=== PATIENT | male | born 1955 | race African-American/Black ===

== ENCOUNTER 2017-06-15 12:49 | Emergency (ER) | payer SELFPAY ==
[2017-06-15 12:57] VITALS: BP 112/85; BMI 24.3
--- NOTE | 2017-06-15 13:55 | DR.GENAD ---
HPI - PCP Primary Care Physician: NFD - HPI Comment HPI Comment: INCREASING ABDOMINAL PAIN SINCE YESTERDAY WITH NAUSEA AND VOMITING. HAD BM YESTERDAY. NO FEVER. VOMITED TIMES ONE TODAY. - Complaint/Symptoms Chief Complaint Doctors Comments: ABDOMINAL PAIN TIMES ONE DAY. Chief Complaint:: PATIENT STATED THAT HE HAS BEEN HAVING STOMACH PAINS SINCE 7: 28 YESTERDAY. - Nurses notes reviewed Nurses Notes Review: Yes - Source History Provided: Patient - Mode of Arrival Mode of Arrival: Ambulatory - Timing Onset of Chief Complaint: 06/14/17 Came on: Suddenly - Duration Duration: Constant Duration: Days - Severity Severity: Moderate PMH - PMH Past Medical History: Yes Past Medical History: Arthritis Past Medical History Comment: BACK PAIN Past Surgical History: No - Family History History of Family Medical Conditions: No - Social History Does patient currently use any type of tobacco product: No Have you used tobacco products in the last 12 months: No Type of Tobacco Use: None Does any household member use tobacco: No Alcohol Use: Rarely Do you use any recreational Drugs:: No Lives With: Family Lives Where: Home - infectious screening In the last 2 months have you had wt loss of >10#?: NO Have you had fever, night sweats or hemotysis?: No Have you traveled outside the country in the last 6 months?: No Isolation: Standard ROS - Review of Systems Constitutional: No Symptoms Reported Eyes: No Symptoms Reported ENTM: No Symptoms Reported Respiratoy: No Symptoms Reported Cardiovascular: No Symptoms Reported Gastrointestinal/Abdominal: Abdominal Pain, Constipation, Nausea, Vomiting. negative: Diarrhea Genitourinary: No Symptoms Reported. negative: Dysuria, Frequency, Hematuria Neurological: No Symptoms Reported Musculoskeletal: No Symptoms Reported Integumentary: No Symptoms Reported Hematologic/Lymphatic: No Symptoms Reported Endocrine: No Symptoms Reported All Other Systems: Reviewed and Negative PE - Vital Signs Vitals: Temperature 98.1 F Pulse Rate 62 Respiratory Rate 20 Blood Pressure 112/85 O2 Sat by Pulse Oximetry 97 - General Limitations: No Limitations General Appearance: Alert - Head Head Exam: Normal Inspection - Eyes Eye exam: Normal Appearance - ENT ENT Exam: Normal External Ear Exam External Ear Exam: Normal External Inspection TM/Canal Exam: Bilateral Normal Nose Exam: Normal Nose Exam Mouth Exam: Normal Inspection Throat Exam: Normal Inspection - Neck Neck Exam: Trachea Midline - Chest Chest Inspection: Symmetric Chest Wall Rise - Respiratory Respiratory Exam: Normal Lung Sounds Bilat Respiratory Exam: Bilateral Clear to Auscultation - Cardiovascular Cardiovascular Exam: Regular Rate, Normal Rhythm, Normal Heart Sounds - Abdominal Exam Abdominal Exam: Normal Bowel Sounds, Soft, Tenderness Abdominal Tenderness: RUQ, LUQ, Epigastrium, Moderate - Extremities Extremities Exam: Normal Inspection - Back Back Exam: Normal Inspection - Neurologic Neurological Exam: Oriented X3, CN II-XII Intact, Normal Gait, Reflexes Normal. negative: Motor Sensory Deficit - Psychiatric Psychiatric Exam: Normal Affect, Normal Mood - Skin Skin Exam: Normal Color MDM - Differential Diagnosis Differential Diagnosis: ABDOMINAL PAIN, BOWEL OBSTRUCTION, DIVERTICULITIS, PUD, CHOLECYSTITIS, UTIN Course - Treatment Treatment: SEE ORDERS. - Education/Counseling Education/Counseling: Patient, Education Educated On: Diagnosis, Needs for Follow Up ROR - Labs Reviewed Laboratory Results Reviewed?: Yes Result Diagrams: 06/15/17 14:04 06/15/17 14:04 Laboratory: WBC 13.0 X10^3/uL (3.6-10.0) H 06/15/17 14:04 RBC 5.65 X10^6/uL (4.7-6.0) 06/15/17 14:04 Hgb 15.9 g/dL (13.5-18.0) 06/15/17 14:04 Hct 48.4 % (42.0-54.0) 06/15/17 14:04 MCV 85.6 fL (80.0-100.0) 06/15/17 14:04 MCH 28.1 pg (27.0-34.0) 06/15/17 14:04 MCHC 32.9 g/dL (33.0-35.0) L 06/15/17 14:04 RDW 13.5 % (11.6-16.5) 06/15/17 14:04 Plt Count 171 X10^3/uL (150.0-450.0) 06/15/17 14:04 MPV 8.7 fL (7.4-11.0) 06/15/17 14:04 Neut % 80.2 % (42.0-75.0) H 06/15/17 14:04 Lymph % 13.2 % (21.0-51.0) L 06/15/17 14:04 [place] % 5.9 % (0.0-13.0) 06/15/17 14:04 Eos % 0.2 % (0.9-2.9) L 06/15/17 14:04 Baso % 0.5 % (0.2-1.0) 06/15/17 14:04 Neut # 10.4 x10^3/uL (2.2-4.8) H 06/15/17 14:04 Lymph # 1.7 X10^3/uL (1.3-2.9) 06/15/17 14:04 [place] # 0.8 x10^3/uL (0.3-0.8) 06/15/17 14:04 Eos # 0.0 x10^3/uL (0.0-0.2) 06/15/17 14:04 Baso # 0.1 X10^3/uL (0.0-0.1) 06/15/17 14:04 Absolute Nucleated RBC 0.0 /100WBC 06/15/17 14:04 Sodium 139 mmol/L (136-145) 06/15/17 14:04 Corrected Sodium 139 mmol/L (136-145) 06/15/17 14:04 Potassium 3.6 mmol/L (3.5-5.1) 06/15/17 14:04 Chloride 103 mmol/L (98-107) 06/15/17 14:04 Carbon Dioxide 33.1 mmol/L (21-32) H 06/15/17 14:04 BUN 18 mg/dL (7-18) 06/15/17 14:04 Creatinine 1.03 mg/dL (0.70-1.30) 06/15/17 14:04 Est GFR (MDRD) Af Amer > 60 (>60) 06/15/17 14:04 Est GFR (MDRD) Non-Af > 60 (>60) 06/15/17 14:04 Glucose 119 mg/dL (65-99) H 06/15/17 14:04 Calcium 9.1 mg/dL (8.5-10.1) 06/15/17 14:04 Corrected Calcium TNP 06/15/17 14:04 Total Bilirubin 1.00 mg/dL (0.2-1.0) 06/15/17 14:04 AST 19 Units/L (15-37) 06/15/17 14:04 ALT 28 Units/L (12-78) 06/15/17 14:04 Alkaline Phosphatase 59 Units/L (46-116) 06/15/17 14:04 Total Protein 8.3 g/dL (6.4-8.2) H 06/15/17 14:04 Albumin 4.4 g/dL (3.4-5.0) 06/15/17 14:04 Globulin 3.9 g/dL (2.5-4.5) 06/15/17 14:04 Albumin/Globulin Ratio 1.1 Ratio (1.1-2.1) 06/15/17 14:04 Amylase 80 Units/L (25-115) 06/15/17 14:04 Lipase 83 Units/L (73-393) 06/15/17 14:04 - XRAY XRAY Interpreted by: Radiologist XRAY Findings: REPORT DISCUSS WITH PATIENT. - Diagnosis Discharge Problem: Rectal mass, Abdominal pain - Discharge Plan Disposition: HOME, SELF-CARE Condition: Stable Prescriptions: Ondansetron HCl [Zofran Tab 4 mg] 4 mg PO Q8H PRN #12 tab PRN Reason: Nausea/Vomiting Ranitidine HCl [ZANTAC TAB 150 MG *] 150 mg PO BID #60 tab Tramadol HCl 50 mg PO TID PRN #12 PRN Reason: - Follow ups/Referrals Follow ups/Referrals: NFD,None [Primary Care Provider] - 06/17/17 - Instructions Instructions: Abdominal Pain, Adult, Lldz-ej-Ahew Additional Instructions: RETURN TO ED IF WORSE. SEE YOUR DOCTOR THIS SATURDAY. YOU HAVE A MASS NEAR RECTUM ON YOUR CAT SCAN THAT YOU NEED TO SEE YOUR DOCTOR FOR SO YOU CAN DISCUSS WHAT NEED TO BE DONE GOING FORWARD.
[2017-06-15] MEDS ORDERED: ZOFRAN INJ 4 MG VIAL IVP ONE (13:56)
[2017-06-15] MEDS ORDERED: PEPCID 20 MG IV PREMIX* 20 MG/50 ML BAG IV ONE ×2 (13:56→14:06)
[2017-06-15] MEDS ORDERED: TORADOL 30 MG VIAL IVP ONE (13:57)
[2017-06-15] MEDS ORDERED: ZOFRAN INJ 4 MG VIAL ONE (14:07)
[2017-06-15] MEDS ORDERED: TORADOL 30 MG VIAL ONE (14:07)
[2017-06-15 14:12] LABS: BASOPHILS # (AUTO) 0.1 X10^3/uL (0.0-0.1); BASOPHILS % (AUTO) 0.5 % (0.2-1.0); EOSINOPHILS % (AUTO) 0.2 % (0.9-2.9); HEMATOCRIT 48.4 % (42.0-54.0); HEMOGLOBIN 15.9 g/dL (13.5-18.0); LYMPHOCYTES # (AUTO) 1.7 X10^3/uL (1.3-2.9); LYMPHOCYTES % (AUTO) 13.2 % (21.0-51.0); MEAN CORPUSCULAR HEMOGLOBIN 28.1 pg (27.0-34.0); MEAN CORPUSCULAR HGB CONC 32.9 g/dL (33.0-35.0); MEAN CORPUSCULAR VOLUME 85.6 fL (80.0-100.0); MEAN PLATELET VOLUME 8.7 fL (7.4-11.0); MONOCYTES # (AUTO) 0.8 x10^3/uL (0.3-0.8); MONOCYTES % (AUTO) 5.9 % (0.0-13.0); NEUTROPHILS # (AUTO) 10.4 x10^3/uL (2.2-4.8); NEUTROPHILS % (AUTO) 80.2 % (42.0-75.0); PLATELET COUNT 171 X10^3/uL (150.0-450.0); RED BLOOD COUNT 5.65 X10^6/uL (4.7-6.0); RED CELL DISTRIBUTION WIDTH 13.5 % (11.6-16.5)
[2017-06-15 14:31] LABS: ALANINE AMINOTRANSFERASE 28 Units/L (12-78); ALBUMIN 4.4 g/dL (3.4-5.0); ALKALINE PHOSPHATASE 59 Units/L (46-116); AMYLASE 80 Units/L (25-115); ASPARTATE AMINO TRANSFERASE 19 Units/L (15-37); BLOOD UREA NITROGEN 18 mg/dL (7-18); CALCIUM 9.1 mg/dL (8.5-10.1); CARBON DIOXIDE 33.1 mmol/L (21-32); CHLORIDE 103 mmol/L (98-107); COR NA(FOR HYPERGLY) 139 mmol/L (136-145); CREATININE 1.03 mg/dL (0.70-1.30); GLUCOSE 119 mg/dL (65-99); LIPASE 83 Units/L (73-393); SODIUM 139 mmol/L (136-145); TOTAL PROTEIN 8.3 g/dL (6.4-8.2); eGFR BLACK RACES > 60 (>60); eGFR NON BLACK RACES > 60 (>60)
--- NOTE | 2017-06-15 15:56 | CT ---
CT OF THE ABDOMEN AND PELVIS WITHOUT CONTRAST HISTORY: Abdominal pain. Comparison: None Technique: Multiple axial images of the abdomen and pelvis were obtained from the lung bases to the pubic symph ysis without the administration of IV contrast. Dose reduction techniques including Automated Expos ure Control (AEC) and adjustment of mA and kV were utlized. Findings: The heart is normal in size. There is no pericardial effusion. Lung bases are clear without focal co nsolidation, pleural effusion or pneumothorax. The sensitivity for focal lesion detection within the solid abdominal viscera is diminished without the use of IV contrast. Liver and spleen are normal in size, and contour. No focal lesions. No ductal dilitation. Gallbladde r is present. No calcified gallstones or gallbladder wall thickening. The pancreas is unremarkable. Adrenal glands are normal. Kidneys are normal in contour without hydronephrosis or nephrolithiasis. No bowel obstruction or inflammation. Normal appendix. There is a soft tissue mass in the adjacent t o the rectum measuring 3.9 x 4.7 x 2.2 cm best seen on series 3, image 64 and series 7, image 30 . M ultiple perirectal lymph nodes are also seen. For example 2 lymph nodes in the presacral region shelli uring 1.3 cm apiece on series 3, image 68. Right iliac node measuring 1.6 cm on series 3, image 64. Should be noted this soft tissue mass may have some contiguity with the rectum for example on series 3, image 69 and series 6 image 43. No free fluid or fluid collections. The bladder is normal in appearance. Prostate measures 5.4 cm. No free fluid. No aggressive osseous lesions. IMPRESSION: 1. Perirectal soft tissue mass as above. Pelvic lymphadenopathy. Findings are concerning for malign willie although this is a somewhat atypical appearance for rectal carcinoma. Theoretically this could represent developing infection although again, would favor malignancy. Reported By:
[2017-06-15] MEDS ORDERED: ULTRAM ONE (16:36)
[2017-06-15] MEDS ORDERED: ULTRAM PO ONE (16:38)
== END 2017-06-15 16:46 | disposition home or self-care (01) ==
LOC: ER 12:54
DX: K62.89 Other specified diseases of anus and rectum (principal); R10.11 Right upper quadrant pain
CPT/HCPCS: 36415; 74176; 80053; 82150; 83690; 85025; 96365; 96374; 96375; 99283; A4222; S0028; J1885; J2405

== ENCOUNTER 2017-07-03 09:12 | Day surgery (SDC) | payer SELFPAY ==
[2017-07-03] MEDS ORDERED: D5 LR 1000 ML 1,000 ML IV ONE (09:34)
[2017-07-03] MEDS ORDERED: DIPRIVAN VIAL 20 ML ONE (11:37)
[2017-07-03 13:20] VITALS: BP 124/82
== END 2017-07-03 12:20 | disposition home or self-care (01) ==
LOC: SURG1 09:12
PROVIDERS: ATTEND Internal Medicine
PROC: 0DBN8ZX Excision of Sigmoid Colon, Via Natural or Artificial Opening Endoscopic, Diagnostic (ICD-10-PCS; principal; 2017-07-03 10:00)
PROC: 0DBM8ZX Excision of Descending Colon, Via Natural or Artificial Opening Endoscopic, Diagnostic (ICD-10-PCS; principal; 2017-07-03 10:00)
PROC: 0DJD8ZZ Inspection of Lower Intestinal Tract, Via Natural or Artificial Opening Endoscopic (ICD-10-PCS; principal; 2017-07-03 10:00)
DX: Z12.11 Encounter for screening for malignant neoplasm of colon (principal); R10.84 Generalized abdominal pain; K57.30 Diverticulosis of large intestine without perforation or abscess without bleeding; R19.09 Other intra-abdominal and pelvic swelling, mass and lump; K64.0 First degree hemorrhoids; L53.8 Other specified erythematous conditions
CPT/HCPCS: A4217; J3490; J7120

== ENCOUNTER → 2017-12-20 | Outpatient (CLI) | payer SELFPAY ==
[2017-12-20 12:24] LABS: BASOPHILS # (AUTO) 0.1 X10^3/uL (0.0-0.1); BASOPHILS % (AUTO) 0.6 % (0.2-1.0); EOSINOPHILS # (AUTO) 0.1 x10^3/uL (0.0-0.2); EOSINOPHILS % (AUTO) 0.8 % (0.9-2.9); HEMATOCRIT 44.2 % (42.0-54.0); HEMOGLOBIN 14.7 g/dL (13.5-18.0); LYMPHOCYTES # (AUTO) 2.6 X10^3/uL (1.3-2.9); LYMPHOCYTES % (AUTO) 22.4 % (21.0-51.0); MEAN CORPUSCULAR HEMOGLOBIN 27.4 pg (27.0-34.0); MEAN CORPUSCULAR HGB CONC 33.1 g/dL (33.0-35.0); MEAN CORPUSCULAR VOLUME 82.6 fL (80.0-100.0); MEAN PLATELET VOLUME 8.3 fL (7.4-11.0); MONOCYTES % (AUTO) 8.8 % (0.0-13.0); NEUTROPHILS # (AUTO) 7.9 x10^3/uL (2.2-4.8); NEUTROPHILS % (AUTO) 67.4 % (42.0-75.0); PLATELET COUNT 235 X10^3/uL (150.0-450.0); RED BLOOD COUNT 5.35 X10^6/uL (4.7-6.0); RED CELL DISTRIBUTION WIDTH 13.6 % (11.6-16.5); WHITE BLOOD COUNT 11.7 X10^3/uL (3.6-10.0)
[2017-12-20 12:45] LABS: ALANINE AMINOTRANSFERASE 24 Units/L (12-78); ALBUMIN 3.9 g/dL (3.4-5.0); ALKALINE PHOSPHATASE 81 Units/L (46-116); ASPARTATE AMINO TRANSFERASE 25 Units/L (15-37); BLOOD UREA NITROGEN 13 mg/dL (7-18); CALCIUM 9.4 mg/dL (8.5-10.1); CHLORIDE 103 mmol/L (98-107); CREATININE 0.87 mg/dL (0.70-1.30); FREE T4 (FREE THYROXINE) 1.08 ng/dL (0.76-1.46); SODIUM 138 mmol/L (136-145); T4 (THYROXINE) 8.5 ug/dL (4.7-13.3); TOTAL PROTEIN 7.8 g/dL (6.4-8.2); TSH (3RD GENERATION) 0.903 uIU/mL (0.358-3.74); eGFR BLACK RACES > 60 (>60); eGFR NON BLACK RACES > 60 (>60)
== END ==
LOC: LAB 12:00
PROVIDERS: ATTEND Nurse Practitioner Family
DX: I10 Essential (primary) hypertension (principal); Z79.899 Other long term (current) drug therapy; Z12.5 Encounter for screening for malignant neoplasm of prostate
CPT/HCPCS: 36415; 80053; 84153; 84154; 84436; 84439; 84443; 85025

== ENCOUNTER 2018-01-22 13:54 | Emergency (ER) | payer SELFPAY ==
[2018-01-22 13:58] VITALS: BP 114/72; BMI 23.2
--- NOTE | 2018-01-22 14:31 | DR.GENAD ---
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 He is scheduled for bone marrow tomorrow. Chief Complaint:: PT. C/O RIGHT HIP PAIN THAT RADIATES TO RIGHT THIGH WHICH BEGAN LAST NIGHT. PT. DENIES INJURY. PT. HAS ALSO BEEN RUNNING A FEVER X 3-4 NIGHTS. SPOUSE STATES PT. WAS RECENTLY DIAGNOSED WITH CANCER (PER DR. HERRERA), UNCERTAIN OF WHAT KIND. PT. IS SCHEDULED FOR BONE MARROW BIOPSY TOMORROW. SHE STATES DR. HERRERA INFORMED THEM THAT IF PT. STARTED RUNNING A FEVER TO COME TO THE ER. - Source History Provided: Patient, Significant Other - Mode of Arrival Mode of Arrival: Ambulatory - Timing Onset of Chief Complaint: 01/18/18 PMH - PMH Past Medical History: Yes Past Medical History: Arthritis Past Surgical History: Yes Surgical History: Other Past Surgical History Comment: HERNIA REPAIR - Family History History of Family Medical Conditions: Yes Family Medical History: Hypertension - Social History Does patient currently use any type of tobacco product: Yes Have you used tobacco products in the last 12 months: Yes Type of Tobacco Use: Cigarettes Does any household member use tobacco: No Alcohol Use: None Do you use any recreational Drugs:: No Lives With: Significant Other Lives Where: Home - infectious screening In the last 2 months have you had wt loss of >10#?: NO Have you had fever, night sweats or hemotysis?: No Have you traveled outside the country in the last 6 months?: No Isolation: Standard ROS - Review of Systems Constitutional: negative: Chills, Diaphoresis Eyes: No Symptoms Reported ENTM: No Symptoms Reported Respiratoy: No Symptoms Reported Cardiovascular: No Symptoms Reported Gastrointestinal/Abdominal: No Symptoms Reported Genitourinary: No Symptoms Reported Neurological: No Symptoms Reported Musculoskeletal: No Symptoms Reported Integumentary: No Symptoms Reported Hematologic/Lymphatic: No Symptoms Reported Endocrine: No Symptoms Reported Psychiatric: No Symptoms Reported All Other Systems: Reviewed and Negative PE - Vital Signs Vitals: Temperature 99.6 F Pulse Rate 88 Respiratory Rate 18 Blood Pressure 114/72 O2 Sat by Pulse Oximetry 98 - General Limitations: No Limitations General Appearance: Alert, In No Apparent Distress - Head Head Exam: Normal Inspection, Atraumatic - Eyes Eye exam: Normal Appearance, PERRL, EOMI - ENT ENT Exam: Normal Exam External Ear Exam: Normal External Inspection TM/Canal Exam: Bilateral Normal Nose Exam: Normal Nose Exam Mouth Exam: Normal Inspection Throat Exam: Normal Inspection - Neck Neck Exam: Normal Inspection - Chest Chest Inspection: Normal Inspection - Respiratory Respiratory Exam: Normal Lung Sounds Bilat Respiratory Exam: Bilateral Clear to Auscultation - Cardiovascular Cardiovascular Exam: Regular Rate - Abdominal Exam Abdominal Exam: Normal Inspection Abdominal Tenderness: negative: RUQ, RLQ, LUQ, LLQ, Epigastrium, Suprapubic, Diffuse, Mild, Moderate, Severe, Other - Extremities Extremities Exam: Normal Inspection, Full ROM - Back Back Exam: Normal Inspection, Full ROM - Neurologic Neurological Exam: Alert, Oriented X3, CN II-XII Intact - Psychiatric Psychiatric Exam: Normal Affect - Skin Skin Exam: Warm, Dry, Intact Course - Education/Counseling Educated On: Treatment, Diagnosis, Needs for Follow Up ROR - Labs Reviewed Result Diagrams: 01/22/18 14:58 Laboratory: WBC 11.2 X10^3/uL (3.6-10.0) H 01/22/18 14:58 RBC 4.95 X10^6/uL (4.7-6.0) 01/22/18 14:58 Hgb 13.4 g/dL (13.5-18.0) L 01/22/18 14:58 Hct 40.3 % (42.0-54.0) L 01/22/18 14:58 MCV 81.4 fL (80.0-100.0) 01/22/18 14:58 MCH 27.0 pg (27.0-34.0) 01/22/18 14:58 MCHC 33.1 g/dL (33.0-35.0) 01/22/18 14:58 RDW 13.7 % (11.6-16.5) 01/22/18 14:58 Plt Count 209 X10^3/uL (150.0-450.0) 01/22/18 14:58 MPV 8.2 fL (7.4-11.0) 01/22/18 14:58 Neut % 73.5 % (42.0-75.0) 01/22/18 14:58 Lymph % 15.1 % (21.0-51.0) L 01/22/18 14:58 [place]s % 10.6 % (0.0-13.0) 01/22/18 14:58 Eos % 0.2 % (0.9-2.9) L 01/22/18 14:58 Baso % 0.6 % (0.2-1.0) 01/22/18 14:58 Neut # 8.3 x10^3/uL (2.2-4.8) H 01/22/18 14:58 Lymph # 1.7 X10^3/uL (1.3-2.9) 01/22/18 14:58 [place]s # 1.2 x10^3/uL (0.3-0.8) H 01/22/18 14:58 Eos # 0.0 x10^3/uL (0.0-0.2) 01/22/18 14:58 Baso # 0.1 X10^3/uL (0.0-0.1) 01/22/18 14:58 Absolute Nucleated RBC 0.0 /100WBC 01/22/18 14:58 C-Reactive Protein 62.50 mg/L (0-3.0) H 01/22/18 14:58 - Diagnosis Discharge Problem: Carcinoma of perirenal tissue - Discharge Plan Condition: Stable - Follow ups/Referrals Follow ups/Referrals: TAMMIE HERRERA [Primary Care Provider] - 3 days - Instructions
[2018-01-22] MEDS ORDERED: DILAUDID INJ IM PRN (14:50)
[2018-01-22] MEDS ORDERED: DILAUDID INJ ONE (14:55)
[2018-01-22 15:06] LABS: BASOPHILS # (AUTO) 0.1 X10^3/uL (0.0-0.1); BASOPHILS % (AUTO) 0.6 % (0.2-1.0); EOSINOPHILS % (AUTO) 0.2 % (0.9-2.9); HEMATOCRIT 40.3 % (42.0-54.0); HEMOGLOBIN 13.4 g/dL (13.5-18.0); LYMPHOCYTES # (AUTO) 1.7 X10^3/uL (1.3-2.9); LYMPHOCYTES % (AUTO) 15.1 % (21.0-51.0); MEAN CORPUSCULAR HGB CONC 33.1 g/dL (33.0-35.0); MEAN CORPUSCULAR VOLUME 81.4 fL (80.0-100.0); MEAN PLATELET VOLUME 8.2 fL (7.4-11.0); MONOCYTES # (AUTO) 1.2 x10^3/uL (0.3-0.8); MONOCYTES % (AUTO) 10.6 % (0.0-13.0); NEUTROPHILS # (AUTO) 8.3 x10^3/uL (2.2-4.8); NEUTROPHILS % (AUTO) 73.5 % (42.0-75.0); PLATELET COUNT 209 X10^3/uL (150.0-450.0); RED BLOOD COUNT 4.95 X10^6/uL (4.7-6.0); RED CELL DISTRIBUTION WIDTH 13.7 % (11.6-16.5); WHITE BLOOD COUNT 11.2 X10^3/uL (3.6-10.0)
[2018-01-22] MEDS ORDERED: ROCEPHIN VIAL 1 GM IM ONE (15:32)
[2018-01-22] MEDS ORDERED: ROCEPHIN VIAL 1 GM ONE (15:37)
== END 2018-01-22 16:00 | disposition home or self-care (01) ==
LOC: ER 14:04
DX: D20.0 Benign neoplasm of soft tissue of retroperitoneum (principal)
CPT/HCPCS: 36415; 85025; 86140; 90471; 96372; 99282; J0696; J1170

== ENCOUNTER 2018-09-09 14:16 | Observation (INO) ==
[2018-09-09 14:19] VITALS: BMI 25.8
--- NOTE | 2018-09-09 14:59 | DR.HEADACH ---
HPI Time Seen Time Seen by Provider: 09/09/18 14:40 Primary Care Physician Primary Care Physician: ALDO Complaint/Symptoms Chief Complaint Doctors Comments: C/O Severe COLIN after lying down Chief Complaint:: PT C/O SEVERE HEADACHE THAT STARTED ALL OF A SUDDEN WHEN HE LAID DOWN. PT STATES HE WAS TRANSFERRED TO [facility] THIS PAST SATURDAY HAVING A STROKE AND HE JUST RETURNED YESTERDAY. Pertinent History: Headache Source History Provided: Patient Mode of Arrival Mode of Arrival: Ambulatory Timing Onset of Chief Complaint: 09/09/18 PMH PMH Past Medical History: Yes Past Medical History: Arthritis and Hypertension Past Surgical History: No Family History History of Family Medical Conditions: Yes Family Medical History: Hypertension Social History Does any household member use tobacco: No Alcohol Use: None Do you use any recreational Drugs:: No Lives With: Family Lives Where: Home infectious screening In the last 2 months have you had wt loss of >10#?: NO Have you had fever, night sweats or hemotysis?: No Have you traveled outside the country in the last 6 months?: No Isolation: Standard ROS Review of Systems Constitutional: See HPI Eyes: No Symptoms Reported ENTM: No Symptoms Reported Respiratoy: No Symptoms Reported Cardiovascular: No Symptoms Reported Gastrointestinal/Abdominal: No Symptoms Reported Genitourinary: No Symptoms Reported Neurological: See HPI and Headache Musculoskeletal: No Symptoms Reported Integumentary: No Symptoms Reported Hematologic/Lymphatic: No Symptoms Reported Endocrine: No Symptoms Reported Psychiatric: No Symptoms Reported All Other Systems: Reviewed and Negative PE Vital Signs Vitals: Temperature 97.6 F Pulse Rate [Left Radial] 60 Pulse Rate 80 Respiratory Rate 17 Blood Pressure [Right Arm] 126/80 Blood Pressure [Left Arm] 153/80 Blood Pressure 127/85 O2 Sat by Pulse Oximetry 99 General Limitations: No Limitations General Appearance: Alert and In No Apparent Distress Head Head Exam: Normal Inspection Eyes Eye exam: Normal Appearance Eyelids: Normal Inspection: Bilateral Pupils: Regular, Round: Bilateral Sclera/Conjunctival: Normal Inspection: Bilateral ENT ENT Exam: Normal Exam External Ear Exam: Normal External Inspection TM/Canal Exam: Bilateral: Normal Nose Exam: Normal Nose Exam Mouth Exam: Normal Inspection Teeth Exam: Normal Inspection Throat Exam: Normal Inspection Neck Neck Exam: Normal Inspection Chest Chest Inspection: Normal Inspection Respiratory Respiratory Exam: Normal Lung Sounds Bilat Respiratory Exam: Bilateral: Clear to Auscultation Cardiovascular Cardiovascular Exam: Regular Rate Abdominal Exam Abdominal Exam: Normal Inspection, Normal Bowel Sounds and Soft Extremities Extremities Exam: Normal Inspection Back Back Exam: Normal Inspection Neurologic Neurological Exam: Alert and Oriented X3 Psychiatric Psychiatric Exam: Normal Affect and Normal Mood Skin Skin Exam: Warm, Dry, Intact and Normal Color MDM Differential Diagnosis Differential Diagnosis: Considerations may include:: CVA ROR Labs Reviewed Laboratory Results Reviewed?: Yes Result Diagrams: 09/10/18 05:17 09/10/18 05:17 Laboratory: WBC 7.6 X10^3/uL (3.6-10.0) 09/10/18 05:17 RBC 4.78 X10^6/uL (4.7-6.0) 09/10/18 05:17 Hgb 13.6 g/dL (13.5-18.0) 09/10/18 05:17 Hct 40.7 % (42.0-54.0) L 09/10/18 05:17 MCV 85.1 fL (80.0-100.0) 09/10/18 05:17 MCH 28.3 pg (27.0-34.0) 09/10/18 05:17 MCHC 33.3 g/dL (33.0-35.0) 09/10/18 05:17 RDW 13.6 % (11.6-16.5) 09/10/18 05:17 Plt Count 142 X10^3/uL (150.0-450.0) L 09/10/18 05:17 MPV 9.2 fL (7.4-11.0) 09/10/18 05:17 Neut % (Auto) 53.8 % (42.0-75.0) 09/10/18 05:17 Lymph % (Auto) 34.5 % (21.0-51.0) 09/10/18 05:17 [place] % (Auto) 8.9 % (0.0-13.0) 09/10/18 05:17 Eos % (Auto) 1.9 % (0.9-2.9) 09/10/18 05:17 Baso % (Auto) 0.9 % (0.2-1.0) 09/10/18 05:17 Neut # (Auto) 4.1 x10^3/uL (2.2-4.8) 09/10/18 05:17 Lymph # (Auto) 2.6 X10^3/uL (1.3-2.9) 09/10/18 05:17 [place] # (Auto) 0.7 x10^3/uL (0.3-0.8) 09/10/18 05:17 Eos # (Auto) 0.1 x10^3/uL (0.0-0.2) 09/10/18 05:17 Baso # (Auto) 0.1 X10^3/uL (0.0-0.1) 09/10/18 05:17 Absolute Nucleated RBC 0.1 /100WBC 09/10/18 05:17 Sodium 139 mmol/L (136-145) 09/10/18 05:17 Corrected Sodium TNP 09/10/18 05:17 Potassium 4.2 mmol/L (3.5-5.1) 09/10/18 05:17 Chloride 105 mmol/L (98-107) 09/10/18 05:17 Carbon Dioxide 26.9 mmol/L (21-32) 09/10/18 05:17 BUN 14 mg/dL (7-18) 09/10/18 05:17 Creatinine 0.88 mg/dL (0.70-1.30) 09/10/18 05:17 Est GFR (MDRD) Af Amer > 60 (>60) 09/10/18 05:17 Est GFR (MDRD) Non-Af > 60 (>60) 09/10/18 05:17 Glucose 103 mg/dL (65-99) H 09/10/18 05:17 Calcium 8.7 mg/dL (8.5-10.1) 09/10/18 05:17 Corrected Calcium TNP 09/10/18 05:17 Magnesium 1.8 mg/dL (1.7-2.9) 09/10/18 05:17 Total Bilirubin 0.50 mg/dL (0.2-1.0) 09/10/18 05:17 AST 19 Units/L (15-37) 09/10/18 05:17 ALT 26 Units/L (12-78) 09/10/18 05:17 Alkaline Phosphatase 78 Units/L (46-116) 09/10/18 05:17 Creatine Kinase 129 Units/L (39-308) 09/10/18 05:17 CK-MB (CK-2) < 1.0 ng/mL (0-4.0) 09/10/18 05:17 CK/CKMB % Calc 0.8 % (<4) 09/10/18 05:17 Troponin I < 0.02 ng/mL (0-1.5) 09/10/18 05:17 Total Protein 6.9 g/dL (6.4-8.2) 09/10/18 05:17 Albumin 3.5 g/dL (3.4-5.0) 09/10/18 05:17 Globulin 3.4 g/dL (2.5-4.5) 09/10/18 05:17 Albumin/Globulin Ratio 1.0 Ratio (1.1-2.1) L 09/10/18 05:17 Specimen Type Clean catch urine 09/09/18 22:02 Urine Color Yellow (YELLOW) 09/09/18 22:02 Urine Appearance Clear (CLEAR) 09/09/18 22: Urine pH 5.0 (5.0 - 8.0) 09/09/18 22:02 Ur Specific Childress 1.025 (1.000-1.030) 09/09/18 22:02 Urine Protein Negative (NEGATIVE) 09/09/18 22:02 Urine Glucose (UA) Negative (NEGATIVE) 09/09/18 22: Urine Ketones Negative (NEGATIVE) 09/09/18 22:02 Urine Occult Blood 2+ (NEGATIVE) 09/09/18 22:02 Urine Nitrite Negative (NEGATIVE) 09/09/18 22: Urine Bilirubin Negative (NEGATIVE) 09/09/18 22:02 Urine Urobilinogen Normal (NORMAL) 09/09/18 22:02 Ur Leukocyte Esterase Negative (NEGATIVE) 09/09/18 22:02 Urine RBC 3-5 /HPF (NONE SEEN) 09/09/18 22:02 Urine WBC None seen /HPF (NONE SEEN) 09/09/18 22:02 Ur Squamous Epith Cells Rare /HPF (NEGATIVE) 09/09/18 22:02 Urine Bacteria Trace /HPF (NEGATIVE) 09/09/18 22:02 Urine Mucus Few /HPF (NEGATIVE) 09/09/18 22:02 Ur Culture Indicated? No/not indicated 09/09/18 22:02 XRAY XRAY Interpreted by: Radiologist XRAY Findings: Spoke with patient and family about findings Instructions Instructions: Steps to Quit Smoking, Zczj-tp-Rach Hospital Discharge After a Stroke Stroke Prevention, Cvww-jm-Cngt How to Take Your Blood Pressure, Doid-ze-Fuyn Ischemic Stroke, Ydxf-vw-[id number] Form - Blood Pressure Record Sheet Hypertension, Okvj-ft-Dgka Rehabilitation After a Stroke, Adult Forms: Patient Portal ADDITIONAL NOTES Additional Notes Additional Notes: Spoke with Dr. Gold. Agrees to admit and evaluate
[2018-09-09 15:21] LABS: BASOPHILS % (AUTO) 0.6 % (0.2-1.0); EOSINOPHILS # (AUTO) 0.1 x10^3/uL (0.0-0.2); EOSINOPHILS % (AUTO) 1.4 % (0.9-2.9); HEMATOCRIT 38.9 % (42.0-54.0); HEMOGLOBIN 13.1 g/dL (13.5-18.0); LYMPHOCYTES # (AUTO) 2.5 X10^3/uL (1.3-2.9); LYMPHOCYTES % (AUTO) 34.2 % (21.0-51.0); MEAN CORPUSCULAR HEMOGLOBIN 28.6 pg (27.0-34.0); MEAN CORPUSCULAR HGB CONC 33.7 g/dL (33.0-35.0); MEAN CORPUSCULAR VOLUME 84.7 fL (80.0-100.0); MEAN PLATELET VOLUME 8.8 fL (7.4-11.0); MONOCYTES # (AUTO) 0.6 x10^3/uL (0.3-0.8); MONOCYTES % (AUTO) 8.3 % (0.0-13.0); NEUTROPHILS % (AUTO) 55.5 % (42.0-75.0); PLATELET COUNT 159 X10^3/uL (150.0-450.0); RED BLOOD COUNT 4.59 X10^6/uL (4.7-6.0); RED CELL DISTRIBUTION WIDTH 13.6 % (11.6-16.5); WHITE BLOOD COUNT 7.2 X10^3/uL (3.6-10.0)
[2018-09-09 15:39] LABS: BLOOD UREA NITROGEN 14 mg/dL (7-18); CALCIUM 8.4 mg/dL (8.5-10.1); CARBON DIOXIDE 27.6 mmol/L (21-32); CHLORIDE 106 mmol/L (98-107); COR NA(FOR HYPERGLY) 141 mmol/L (136-145); CREATININE 0.95 mg/dL (0.70-1.30); SODIUM 141 mmol/L (136-145); TROPONIN I < 0.02 ng/mL (0-1.5); eGFR NON BLACK RACES > 60 (>60)
[2018-09-09 15:44] LABS: ALANINE AMINOTRANSFERASE 27 Units/L (12-78); ALBUMIN 3.4 g/dL (3.4-5.0); ALKALINE PHOSPHATASE 81 Units/L (46-116); ASPARTATE AMINO TRANSFERASE 15 Units/L (15-37); CKMB % 0.7 % (<4); CREATINE KINASE 153 Units/L (39-308); TOTAL PROTEIN 6.8 g/dL (6.4-8.2)
--- NOTE | 2018-09-09 16:11 | CT ---
HEAD CT WITHOUT IV CONTRAST CLINICAL INDICATION: Headache TECHNIQUE: Axial CT images from skull base to vertex without IV contrast.Dose reduction techniques in cluding Automated Exposure Control (AEC) and adjustment of mA and kV were utlized. COMPARISON: 09/06/2018 FINDINGS: Right upper lobe with wrist pain right. Axilla that pain in right frontal lobe posteriorly. No defini te edema or mass effect. Suspected hyperdense MCA sign on series 4. The. There is no evidence of intr acranial hemorrhage, mass or mass effect, or abnormal extra-axial collection. The density of the larg er dural venous sinuses is normal. The ventricles are normal in size, shape and position. The skull b ase and calvarium are normal. The included paranasal sinuses and mastoid air cells are predominantly clear. IMPRESSION: 1. Findings of acute/subacute right frontal lobe infarct with probable hyperdense right MCA sign sugg esting right MCA thrombus. Reported By:
[2018-09-09] MEDS ORDERED: ATIVAN TAB 1 MG PO PRN (18:08)
[2018-09-09] MEDS ORDERED: MORPHINE SULFATE INJ 2 MG INJ IVP PRN (18:08)
[2018-09-09] MEDS ORDERED: PLAVIX PO SCH (19:00)
[2018-09-09] MEDS ORDERED: ASPIRIN PO SCH (19:00)
[2018-09-09] MEDS: NS 1000 ML 1,000 ML IV SCH (21:11)
[2018-09-09] MEDS: NEURONTIN CAP 300 MG PO SCH (21:55)
[2018-09-09] MEDS: LOPRESSOR TAB 25 MG PO SCH (21:55)
[2018-09-09 22:24] LABS: BILIRUBIN,URINE NEGATIVE (NEGATIVE); BLOOD/HEMOGLOBIN,URINE 2+ (NEGATIVE); GLUCOSE, URINE NEGATIVE (NEGATIVE); KETONES,URINE NEGATIVE (NEGATIVE); LEUKOCYTE ESTERASE ,URINE NEGATIVE (NEGATIVE); NITRITES,URINE NEGATIVE (NEGATIVE); PROTEIN,URINE NEGATIVE (NEGATIVE); UROBILINOGEN,URINE NORMAL (NORMAL)
[2018-09-09 22:31] LABS: APPEARANCE,URINE CLEAR (CLEAR); BACTERIA,URINE TRACE /HPF (NEGATIVE); COLOR,URINE YELLOW (YELLOW); MUCUS,URINE FEW /HPF (NEGATIVE); SQUAMOUS EPITHELIAL CELL,UR RARE /HPF (NEGATIVE)
[2018-09-09 23:42] LABS: CKMB % 0.7 % (<4); CREATINE KINASE 151 Units/L (39-308); CREATINE KINASE MB < 1.0 ng/mL (0-4.0); TROPONIN I < 0.02 ng/mL (0-1.5)
[2018-09-10 05:41] LABS: BASOPHILS # (AUTO) 0.1 X10^3/uL (0.0-0.1); BASOPHILS % (AUTO) 0.9 % (0.2-1.0); EOSINOPHILS # (AUTO) 0.1 x10^3/uL (0.0-0.2); EOSINOPHILS % (AUTO) 1.9 % (0.9-2.9); HEMATOCRIT 40.7 % (42.0-54.0); HEMOGLOBIN 13.6 g/dL (13.5-18.0); LYMPHOCYTES # (AUTO) 2.6 X10^3/uL (1.3-2.9); LYMPHOCYTES % (AUTO) 34.5 % (21.0-51.0); MEAN CORPUSCULAR HEMOGLOBIN 28.3 pg (27.0-34.0); MEAN CORPUSCULAR HGB CONC 33.3 g/dL (33.0-35.0); MEAN CORPUSCULAR VOLUME 85.1 fL (80.0-100.0); MEAN PLATELET VOLUME 9.2 fL (7.4-11.0); MONOCYTES # (AUTO) 0.7 x10^3/uL (0.3-0.8); MONOCYTES % (AUTO) 8.9 % (0.0-13.0); NEUTROPHILS # (AUTO) 4.1 x10^3/uL (2.2-4.8); NEUTROPHILS % (AUTO) 53.8 % (42.0-75.0); PLATELET COUNT 142 X10^3/uL (150.0-450.0); RED BLOOD COUNT 4.78 X10^6/uL (4.7-6.0); RED CELL DISTRIBUTION WIDTH 13.6 % (11.6-16.5); WHITE BLOOD COUNT 7.6 X10^3/uL (3.6-10.0)
[2018-09-10 06:03] LABS: ALANINE AMINOTRANSFERASE 26 Units/L (12-78); ALBUMIN 3.5 g/dL (3.4-5.0); ALKALINE PHOSPHATASE 78 Units/L (46-116); ASPARTATE AMINO TRANSFERASE 19 Units/L (15-37); BLOOD UREA NITROGEN 14 mg/dL (7-18); CALCIUM 8.7 mg/dL (8.5-10.1); CARBON DIOXIDE 26.9 mmol/L (21-32); CHLORIDE 105 mmol/L (98-107); CKMB % 0.8 % (<4); CREATINE KINASE 129 Units/L (39-308); CREATINE KINASE MB < 1.0 ng/mL (0-4.0); CREATININE 0.88 mg/dL (0.70-1.30); MAGNESIUM 1.8 mg/dL (1.7-2.9); SODIUM 139 mmol/L (136-145); TOTAL PROTEIN 6.9 g/dL (6.4-8.2); TROPONIN I < 0.02 ng/mL (0-1.5); eGFR NON BLACK RACES > 60 (>60)
[2018-09-10 08:18] VITALS: BP 153/80
[2018-09-10] MEDS: LOPRESSOR TAB 25 MG PO SCH (08:55)
[2018-09-10] MEDS: NEURONTIN CAP 300 MG PO SCH (08:55)
[2018-09-10] MEDS: NS 1000 ML 1,000 ML IV SCH (08:55)
[2018-09-10] MEDS ORDERED: ELIQUIS PO SCH (09:00)
--- NOTE | 2018-09-10 15:55 | DR.CARTERS ---
Short Stay Summary - Short Stay Summary for: Short Stay Summary for Date of:: 09/10/18 - Admission Date Date of Admission: 09/09/18 - Discharge Date Discharge Date: 09/10/18 - Admission Diagnoses (1) Intractable headache Status: Acute (2) Prostate cancer metastatic to bone Status: Acute (3) Atrial fibrillation Status: Acute (4) CVA (cerebral vascular accident) Status: Acute - Hospital Course Hospital Course: MR ANDERSON IN A 65 BM, ER ADMISSION AFTER PRESENTING WITH CO OF INTRACTABLE COLIN. PT RECENTLY SUFFERED AN ACUTE CVA ON SATURDAY, 09/06 AND WAS SHIPPED TO [place] WITH RIGHT FRONTAL LOBE INFARCT. PT WAS STARTED ON STATIN, ALSO ON ELIQUIS AND LOPRESSOR FOR PAROXYSMAL AFIB. PT ALSO HAD PMH OF PROSTATE CANCER, UNDER THE CARE OF DR MOJICA AND DR JACOBSON IN [place]. PT STATES HE STARTED WITH TERRIBLE COLIN ON SATURDAY AND BECAME SCARED BECAUSE HE JUST HAD STROKE. PT STATES HE WAS TOLD BY NEUROLOGIST IN [place] TO REPORT TO ER WITH NEURO SYMPTOMS OF COLIN, DIZZINESS, VISION CHANGES. PT HAD CT OF BRAIN IN ER WITHOUT NEW FINDINGS. PT HAD EASE OF HEADACHE AFTER ARRIVAL TO ER. PT HAD STABLE LABS CBC CMP, RESTARTED ON HOME MEDS AND UP ACTIVE WITHOUT ASSISTANCE THIS AM ASKING TO GO HOME. PT HAD NORMAL PHYSICAL EXAM, HEART RATE RRR THIS AM. ENCOURAGED PT TO TAKE MEDICATION PRESCRIBED SEE DR PEREIRA IN ONE WEEK KEEP BP DIARY AND REST. FOLLOW UP WITH MAIKOL SCHEDULED - Discharge Medications Discharge Medications: Home Medication List Eliquis 5 mg PO BID 09/09/18 [History] apixaban [Eliquis] 5 mg PO BID #60 tab 09/10/18 [Rx] atorvastatin [Lipitor] 40 mg PO HS 09/10/18 [History] Prescriptions: apixaban [Eliquis] ESTELLA CHAKRABORTY - Discharge Plan Disposition: HOME, SELF-CARE Condition: Stable Prescriptions: apixaban [Eliquis] 5 mg PO BID #60 tab - Follow up/Referrals Follow up/Referrals: AMAIARNI PEREIRA [Primary Care Provider] - 09/17/18 2:00 pm - Instructions Instructions: Steps to Quit Smoking, Fcle-kt-Oyrm, Hospital Discharge After a Stroke, Stroke Prevention, Tzjw-hp-Bfyh, How to Take Your Blood Pressure, Emnn-ic-Ojbg, Ischemic Stroke, Jrol-zl-Pkzf, Form - Blood Pressure Record Sheet, Hypertension, Eyer-vl-Cfjt, Rehabilitation After a Stroke, Adult Additional Instructions: resume home meds lopressor and eilquis bid continue care with dr jacobson and dr mojica for prostate ca follow up with dr pereira in one week rest, keep bp diary Forms: Patient Portal
== END 2018-09-10 10:47 | disposition home or self-care (01) ==
LOC: OBS 14:16 → ER 14:16 → OBS 18:55
PROVIDERS: ADMIT Internal Medicine; ATTEND Internal Medicine
DX: R94.31 Abnormal electrocardiogram [ECG] [EKG]; R42 Dizziness and giddiness; I63.89 Other cerebral infarction; R51 Headache; C61 Malignant neoplasm of prostate; C79.51 Secondary malignant neoplasm of bone; I48.91 Unspecified atrial fibrillation
CPT/HCPCS: 36415; 70450; 80053; 81001; 82550; 82553; 83735; 84484; 85025; 93005; 93010; 94760; 96365; 96367; 96374; 99283; 99284; A4222; G0378; J7030

== ENCOUNTER 2021-06-26 18:21 | Observation (INO) ==
[2021-06-26] MEDS ORDERED: NS 1000 ML 1,000 ML IV STA (18:37)
--- NOTE | 2021-06-26 18:37 | DR.WEAKNES ---
HPI Time Seen Time Seen by Provider: 06/26/21 18:36 HPI Comment HPI Comment: SPOUSE STATES PATIENT WITH A HISTORY OF CVA 08/2019, BECAME APHASIC WHILE SITTING ON HIS PORCH TALKING TO HIS NEIGHBOR. SPOUSE NOTED RIGHT SIDED WEAKNESS AND FACIAL DROOP. Complaints Chief Complaint Doctors Comments: NEW ONSET OF RIGHT SIDED WEAKNESS Timing Since onset, symptoms are:: Unchanged Symptom Onset: Known Onset of Symptoms Start Date: 06/26/21 Context Symptoms: Paralysis, Weakness, Numbness and Difficulty talking History of: CVA and Atrial Fibrillation Stroke Symptoms: Aphasia PMH PMH Past Medical History: Arthritis, CVA and Hypertension Past Surgical History: Yes Surgical History: Other Family History Family Medical History: Cancer Social History Do you use any recreational Drugs:: No ROS Review of Systems Constitutional: See HPI Eyes: No Symptoms Reported ENTM: No Symptoms Reported Respiratoy: No Symptoms Reported Cardiovascular: No Symptoms Reported Gastrointestinal/Abdominal: No Symptoms Reported Genitourinary: No Symptoms Reported Neurological: See HPI and Weakness (RIGHT HEMIPARALYSIS) Musculoskeletal: No Symptoms Reported Integumentary: No Symptoms Reported Hematologic/Lymphatic: No Symptoms Reported Endocrine: No Symptoms Reported Psychiatric: No Symptoms Reported All Other Systems: Reviewed and Negative PE Vital Signs Vitals: Temperature 97.6 F Pulse Rate 72 Respiratory Rate 18 Blood Pressure [Right Arm] 130/93 Blood Pressure [Left Arm] 153/80 Blood Pressure 135/91 O2 Sat by Pulse Oximetry 100 General Limitations: Language Barrier (APHASIC) General Appearance: Alert (FOLLOWS INSTRUCTIONS WELL) Head Head Exam: Normal Inspection Eyes Eye exam: Normal Appearance Eyelids: Normal Inspection: Bilateral Anterior Chamber: Normal Inspection: Bilateral ENT ENT Exam: Normal Exam and Normal Oropharynx Mouth Exam: Normal Inspection Neck Neck Exam: Normal Inspection and Full ROM Chest Chest Inspection: Normal Inspection Respiratory Respiratory Exam: Normal Lung Sounds Bilat Respiratory Exam: Bilateral: Clear to Auscultation Cardiovascular Cardiovascular Exam: Regular Rate and Normal Rhythm Abdominal Exam Abdominal Exam: Normal Inspection and Normal Bowel Sounds Extremities Extremities Exam: Normal Inspection and Full ROM Back Back Exam: Normal Inspection and Full ROM Neurologic Neurological Exam: Alert and Motor Sensory Deficit (RIGHT HEMIPARALYSIS UPON ARRIVAL AT 1836) Cranial Nerve Exam: Facial Palsy (VII): Right Abnormal MDM Differential Diagnosis Differential Diagnosis: CVA and TIA COURSE Treatment Treatment: IV NORMAL SALINE 125ML/HR, AT 2130 PATIENT HAS RETURN OF MOTOR FUNCTION, HAND CUSTOMER SUCCESS ADVOCATE, ANKLE DORSIFLEXION 5/5, NORMAL SPEECH, ALERT/ APPROPRIATE Reevaluation 1st: Improved Consultation Call Returned: 21:45 Consultation Comments: FINDINGS DISCUSSED WITH DR ABARCA FOR INPATIENT ADMIT ROR Labs Reviewed Laboratory Results Reviewed?: Yes Result Diagrams: 06/26/21 19:00 06/26/21 19:00 Laboratory: WBC 10.0 X10^3/uL (3.6-10.0) 06/26/21 19:00 RBC 4.81 X10^6/uL (4.7-6.0) 06/26/21 19:00 Hgb 13.5 g/dL (13.5-18.0) 06/26/21 19:00 Hct 41.3 % (42.0-54.0) L 06/26/21 19:00 MCV 85.9 fL (80.0-100.0) 06/26/21 19:00 MCH 28.1 pg (27.0-34.0) 06/26/21 19:00 MCHC 32.7 g/dL (33.0-35.0) L 06/26/21 19:00 RDW 15.4 % (11.6-16.5) 06/26/21 19:00 Plt Count 191 X10^3/uL (150.0-450.0) 06/26/21 19:00 MPV 9.2 fL (7.4-11.0) 06/26/21 19:00 Neut % (Auto) 52.9 % (42.0-75.0) 06/26/21 19:00 Lymph % (Auto) 37.4 % (21.0-51.0) 06/26/21 19:00 Barber % (Auto) 7.4 % (0.0-13.0) 06/26/21 19:00 Eos % (Auto) 1.6 % (0.9-2.9) 06/26/21 19:00 Baso % (Auto) 0.7 % (0.2-1.0) 06/26/21 19:00 Neut # (Auto) 5.3 x10^3/uL (2.2-4.8) H 06/26/21 19:00 Lymph # (Auto) 3.8 X10^3/uL (1.3-2.9) H 06/26/21 19:00 Barber # (Auto) 0.7 x10^3/uL (0.3-0.8) 06/26/21 19:00 Eos # (Auto) 0.2 x10^3/uL (0.0-0.2) 06/26/21 19:00 Baso # (Auto) 0.1 X10^3/uL (0.0-0.1) 06/26/21 19:00 Absolute Nucleated RBC 0.0 /100WBC 06/26/21 19:00 PT 13.6 SECONDS (11.8-14.3) 06/26/21 19:00 INR Target Range - 06/26/21 19:00 INR 1.09 (0.8-1.3) 06/26/21 19:00 Sodium 146 mmol/L (136-145) H 06/26/21 19:00 Corrected Sodium TNP 06/26/21 19:00 Potassium 3.9 mmol/L (3.5-5.1) 06/26/21 19:00 Chloride 110 mmol/L (98-107) H 06/26/21 19:00 Carbon Dioxide 25.8 mmol/L (21-32) 06/26/21 19:00 BUN 16 mg/dL (7-18) 06/26/21 19:00 Creatinine 1.27 mg/dL (0.70-1.30) 06/26/21 19:00 Est GFR (MDRD) Af Amer > 60 (>60) 06/26/21 19:00 Est GFR (MDRD) Non-Af > 60 (>60) 06/26/21 19:00 Glucose 95 mg/dL (65-99) 06/26/21 19:00 Calcium 9.2 mg/dL (8.5-10.1) 06/26/21 19:00 Corrected Calcium TNP 06/26/21 19:00 Total Bilirubin 0.20 mg/dL (0.2-1.0) 06/26/21 19:00 AST 0 Units/L (15-37) L 06/26/21 19:00 ALT 7 Units/L (12-78) L 06/26/21 19:00 Alkaline Phosphatase 55 Units/L (46-116) 06/26/21 19:00 Troponin I < 0.02 ng/mL (0-1.5) 06/26/21 19:00 Total Protein 7.7 g/dL (6.4-8.2) 06/26/21 19:00 Albumin 3.9 g/dL (3.4-5.0) 06/26/21 19:00 Globulin 3.8 g/dL (2.5-4.5) 06/26/21 19:00 Albumin/Globulin Ratio 1.0 Ratio (1.1-2.1) L 06/26/21 19:00 SARS-CoV-2 (PCR) Negative (NEGATIVE) 06/26/21 20:55 Influenza Type A (PCR) Negative (NEGATIVE) 06/26/21 20:55 Influenza Type B (PCR) Negative (NEGATIVE) 06/26/21 20:55 RSV (PCR) Negative (NEGATIVE) 06/26/21 20:55 XRAY XRAY Interpreted by: Radiologist (HEAD CT SCAN- OKD RIGHT LATERAL BASAL GANGLIA, MCA TERRITORY INFARCTION, NO FRACTURE OR INTRACRANIAL HEMORHAGE MASS EFFECT) X-ray Results: PORTABLE CHEST XRAY- NEGATIVE EKG Rate: 86 Rhythm: Afib ST: Nonsp Opioid Opioid Risk Tool Age (Caleb box if 16-45): No History of Preadolescent Sexual Abuse: No Total: 0 Total Score Risk Category: Low Risk Copyright: Cayden DAWSON predicting aberrant behaviors Diagnosis Discharge Problem: Transient ischemic attack
[2021-06-26 18:53] VITALS: BMI 24.3
[2021-06-26] MEDS ORDERED: NS 1000 ML 1,000 ML ONE (18:57)
[2021-06-26 19:12] LABS: BASOPHILS # (AUTO) 0.1 X10^3/uL (0.0-0.1); BASOPHILS % (AUTO) 0.7 % (0.2-1.0); EOSINOPHILS # (AUTO) 0.2 x10^3/uL (0.0-0.2); EOSINOPHILS % (AUTO) 1.6 % (0.9-2.9); HEMATOCRIT 41.3 % (42.0-54.0); HEMOGLOBIN 13.5 g/dL (13.5-18.0); LYMPHOCYTES # (AUTO) 3.8 X10^3/uL (1.3-2.9); LYMPHOCYTES % (AUTO) 37.4 % (21.0-51.0); MEAN CORPUSCULAR HEMOGLOBIN 28.1 pg (27.0-34.0); MEAN CORPUSCULAR HGB CONC 32.7 g/dL (33.0-35.0); MEAN CORPUSCULAR VOLUME 85.9 fL (80.0-100.0); MEAN PLATELET VOLUME 9.2 fL (7.4-11.0); MONOCYTES # (AUTO) 0.7 x10^3/uL (0.3-0.8); MONOCYTES % (AUTO) 7.4 % (0.0-13.0); NEUTROPHILS # (AUTO) 5.3 x10^3/uL (2.2-4.8); NEUTROPHILS % (AUTO) 52.9 % (42.0-75.0); PLATELET COUNT 191 X10^3/uL (150.0-450.0); RED BLOOD COUNT 4.81 X10^6/uL (4.7-6.0); RED CELL DISTRIBUTION WIDTH 15.4 % (11.6-16.5)
[2021-06-26 19:25] LABS: ALANINE AMINOTRANSFERASE 7 Units/L (12-78); ALBUMIN 3.9 g/dL (3.4-5.0); ALKALINE PHOSPHATASE 55 Units/L (46-116); BLOOD UREA NITROGEN 16 mg/dL (7-18); CALCIUM 9.2 mg/dL (8.5-10.1); CARBON DIOXIDE 25.8 mmol/L (21-32); CHLORIDE 110 mmol/L (98-107); CREATININE 1.27 mg/dL (0.70-1.30); SODIUM 146 mmol/L (136-145); TOTAL PROTEIN 7.7 g/dL (6.4-8.2); TROPONIN I < 0.02 ng/mL (0-1.5); eGFR NON BLACK RACES > 60 (>60)
[2021-06-26 19:28] LABS: ASPARTATE AMINO TRANSFERASE 0 Units/L (15-37)
--- NOTE | 2021-06-26 19:30 | CT ---
EXAM: HEAD CT WITHOUT INTRAVENOUS CONTRASTHISTORY: New onset right-sided weakness.TECHNIQUE: Spiral axial CT images are obtained through the brain without the administration of intravenous contrast. Additional sagittal and coronal reformatted images are reconstructed.DOSIMETRY: Total DLP 1155.2 mGycm; CTDI 67.4 mGyCOMPARISON: Head CT dated May 05, 2020.FINDINGS:There is a chronic infarction within the right lateral basal ganglia with parenchymal lucency/encephalomalacia. There are extensive patchy parenchymal lucencies within the white matter tracks of the centrum semiovale, consistent with chronic sequela of atherosclerotic microvascular ischemic disease.There is diffuse cerebral cortical atrophy. There are nonspecific bilateral symmetrical cerebellar parenchymal dystrophic calcifications. The centrum semiovale, basal ganglia, cerebellum, and brainstem are otherwise grossly unremarkable for a noncontrast CT scan. There is no acute intracranial hemorrhage, gross acute infarction, mass lesion, midline shift, or hydrocephalus seen. No extra-axial mass or abnormal fluid collection noted.The calvarium is intact. The partially imaged paranasal sinuses, middle ear cavities and mastoid air cells are clear.IMPRESSION:1. Old right lateral basal ganglia/MCA territory infarction, and extensive chronic microvascular ischemic disease, but no discernible acute infarction seen. Consider followup MRI with diffusion-weighted imaging to rule out occult acute infarction if clinically warranted.2. No skull fracture, intracranial hemorrhage, mass lesion, midline shift, or hydrocephalus seen.3. No significant interval change seen.Electronically signed by: Izzy Garcia (Jun 26, 2021 19:28:29)
--- NOTE | 2021-06-26 19:51 | RAD ---
EXAM: CHEST X-RAYHISTORY: Cough.TECHNIQUE: AP chest x-ray dated June 26, 2021 at 6:52 PM.COMPARISON: CXR dated November 21, 2019.FINDINGS:The heart size and mediastinum are within normal limits. There is interval development of approximately 3 cm asymmetrical elevation of the right hemidiaphragm, with presumed compressive right basilar atelectasis; cannot rule out occult pneumonic infiltrate in this region in the appropriate clinical setting. Consider follow-up evaluation with CT for optimal assessment of the region as clinically warranted. The lung manzo and costophrenic angles are otherwise clear. There is no acute parenchymal infiltrate, pleural effusion, or pneumothorax seen. The visualized bony structures are within normal limits.IMPRESSION:1. Interval development of approximately 3 cm asymmetrical elevation of the right hemidiaphragm, with presumed compressive right basilar atelectasis; cannot rule out occult pneumonic infiltrate in this region in the appropriate clinical setting.2. Consider follow-up evaluation with CT for optimal assessment of the region as clinically warranted.Electronically signed by: Izzy Garcia (Jun 26, 2021 19:49:38)
[2021-06-27] MEDS ORDERED: PROVENTIL NEB TX 0.083% 2.5MG/ 3ML NEB PRN ×2 (02:11→02:38)
[2021-06-27] MEDS: NS 1000 ML 1,000 ML IV SCH (04:30)
[2021-06-27 09:03] LABS: BASOPHILS # (AUTO) 0.1 X10^3/uL (0.0-0.1); BASOPHILS % (AUTO) 0.8 % (0.2-1.0); EOSINOPHILS # (AUTO) 0.2 x10^3/uL (0.0-0.2); EOSINOPHILS % (AUTO) 1.7 % (0.9-2.9); HEMATOCRIT 41.1 % (42.0-54.0); HEMOGLOBIN 13.3 g/dL (13.5-18.0); LYMPHOCYTES # (AUTO) 3.2 X10^3/uL (1.3-2.9); LYMPHOCYTES % (AUTO) 33.8 % (21.0-51.0); MEAN CORPUSCULAR HEMOGLOBIN 27.9 pg (27.0-34.0); MEAN CORPUSCULAR HGB CONC 32.4 g/dL (33.0-35.0); MONOCYTES # (AUTO) 0.6 x10^3/uL (0.3-0.8); MONOCYTES % (AUTO) 6.8 % (0.0-13.0); NEUTROPHILS # (AUTO) 5.3 x10^3/uL (2.2-4.8); NEUTROPHILS % (AUTO) 56.9 % (42.0-75.0); PLATELET COUNT 167 X10^3/uL (150.0-450.0); RED BLOOD COUNT 4.78 X10^6/uL (4.7-6.0); RED CELL DISTRIBUTION WIDTH 15.6 % (11.6-16.5); WHITE BLOOD COUNT 9.4 X10^3/uL (3.6-10.0)
[2021-06-27] MEDS: ELIQUIS PO SCH ×2 (09:09→21:00)
[2021-06-27] MEDS: NEURONTIN CAP 300 MG PO SCH ×2 (09:09→21:00)
[2021-06-27] MEDS: PriLOSEC PO SCH (09:09)
[2021-06-27] MEDS: LOPRESSOR TAB 25 MG PO SCH ×2 (09:09→21:00)
[2021-06-27] MEDS: ZESTRIL TAB 10 MG PO SCH (09:09)
[2021-06-27 09:17] LABS: ALANINE AMINOTRANSFERASE 11 Units/L (12-78); ALBUMIN 3.5 g/dL (3.4-5.0); ALKALINE PHOSPHATASE 48 Units/L (46-116); ASPARTATE AMINO TRANSFERASE 11 Units/L (15-37); BLOOD UREA NITROGEN 13 mg/dL (7-18); CALCIUM 8.8 mg/dL (8.5-10.1); CARBON DIOXIDE 25.1 mmol/L (21-32); CHLORIDE 110 mmol/L (98-107); CREATININE 0.98 mg/dL (0.70-1.30); SODIUM 145 mmol/L (136-145); TOTAL PROTEIN 7.4 g/dL (6.4-8.2); eGFR NON BLACK RACES > 60 (>60)
[2021-06-27 09:24] LABS: CREATINE KINASE 100 Units/L (39-308); CREATINE KINASE MB < 1.0 ng/mL (0-4.0); TROPONIN I < 0.02 ng/mL (0-1.5)
--- NOTE | 2021-06-27 16:04 | MRI ---
HISTORYCAROTID ARTERY DISEASE; TIA, right-sided weakness and slurred speechSTUDYMRA NECK W/O IV [id number] and 3D time of flight images of the carotid and vertebral arteries in the neck were performed with MIP reconstructions. IV contrast was not administered. Images are reviewed using NASCET criteria.FINDINGSMotion limits the study. Vertebral arteries appear symmetric without suggestion of hemodynamically significant stenosis. No suggestion of hemodynamically significant stenosis in left CCA or left carotid bifurcation. There is tortuosity of the left ICA and 50-60 percent narrowing in the mid left ICA is not excluded. However, this appearance is probably artifactual from flow dephasing.Right CCA is very poorly seen and no flow is seen in the right ICA. Findings are concerning for possible high-grade right CCA stenosis and possible right ICA occlusion. A string sign cannot be excluded on MRA, though. Further evaluation with CTA is recommended.IMPRESSIONMotion limits the study but there is concern for high-grade stenosis in the proximal right CCA with possible occlusion of the right ICA. Further evaluation with CTA is recommended. Subtotal stenosis in the right ICA cannot be excluded on MRA exam.Electronically signed by: Mina Aranda (Jun 27, 2021 16:01:07)
--- NOTE | 2021-06-27 18:21 | DR.H&P ---
H&P - History & Physical for Day of: H&P Date: 06/27/21 - Chief Complaint Chief Complaint: right side weakness, slurred speech - History of Present Illness History of Present Illness: SPOUSE STATES PATIENT WITH A HISTORY OF CVA 08/2019, BECAME APHASIC WHILE SITTING ON HIS PORCH TALKING TO HIS NEIGHBOR. SPOUSE NOTED RIGHT SIDED WEAKNESS AND FACIAL DROOP. PT HAS PMH OF PREVIOUS CVA, AFIB, CAROTID ARTERY DISEASE, METASTATIC PROSTATE CANCER AND HYPERTENSION. PT REPORTS HE IS COMPLIANT WITH MEDICATION REGIMEN. PT ADMITTED FOR TREATMENT OF ACUTE ILLNESS. - Past Medical History Past Medical History: CVA, Hypertension - Past Surgical History Surgical History: Other - Family History Family Medical History: Cancer, Hypertension - Social History Does patient currently use any type of tobacco product: Yes Have you used tobacco products in the last 12 months: Yes Type of Tobacco Use: Cigarettes How many years tobacco product used: 40 Does any household member use tobacco: No Alcohol Use: Occasionally Drug Use: None - Medications Home Medications: No Known Drug Allergies Allergy (Verified 03/25/21 07:04) CONTINUE taking the following medications ciclopirox 1 applic TOPICAL BID 06/27/21 [History] enzalutamide [Xtandi] 160 mg PO DAILY 06/27/21 [History] fluticasone propionate 1 spray INTRANASAL BID 06/27/21 [History] oxycodone-acetaminophen 1 tab PO Q8H 06/27/21 [History] - Review of Systems Constitutional: Weakness Eyes: No Symptoms Reported ENT: Other (RIGHT MOUTH DROOP) Respiratory: No Symptoms Reported Cardiovascular: No Symptoms Reported, Light Headedness Gastrointestinal: No Symptoms Reported Genitourinary: No Symptoms Reported Musculoskeletal: Back Pain Skin: No Symptoms Reported Neurological: Weakness, Incoordination, Change in Speech - Physical Exam Vital Signs: Temperature 97.7 F Pulse Rate [Left] 52 Pulse Rate 58 Respiratory Rate 22 Blood Pressure [Right Arm] 135/78 Blood Pressure [Left Arm] 134/91 Blood Pressure 135/91 O2 Sat by Pulse Oximetry 98 Oriented: Person Eyes: Normal Ear: Normal Nose: Normal Throat: Normal Respiratory: RLL Diminished, LLL Diminished Cardiovascular: Irregular. negative: Edema : Normal Auscultation: Bowel Sounds: Normal Palpation: Normal Tenderness: Normal Skin: Normal Musculoskeletal: Back:Lumbar Psychiatric: Anxiety Affect: Anxious Speech Pattern: Slurred - Assessment/Plan (1) History of CVA (cerebrovascular accident) Status: Acute Plan: ADMIT, CONTINUE ELIQUIS, CARDIAC MONITORING. HTN, CONTROL. MRI, MRA CAROTID, BRAIN. EKG ON ADMISSION, PRN SUPPLMENTAL O2. AM FLP. CONTINUE STATIN (2) Hypertension Status: Acute (3) Transient ischemic attack Status: Acute (4) Atrial fibrillation Status: Acute - Allergies Allergies/Adverse Reactions: Allergies Allergy/AdvReac Type Severity Reaction Status Date / Time No Known Drug Allergies Allergy Verified 03/25/21 07:04
[2021-06-27] MEDS ORDERED: LIPITOR TAB 40 MG PO SCH (21:00)
[2021-06-28] MEDS: NS 1000 ML 1,000 ML IV SCH ×3 (05:30→08:37)
[2021-06-28 06:42] LABS: BASOPHILS % (AUTO) 0.4 % (0.2-1.0); EOSINOPHILS # (AUTO) 0.2 x10^3/uL (0.0-0.2); EOSINOPHILS % (AUTO) 1.8 % (0.9-2.9); HEMATOCRIT 42.9 % (42.0-54.0); HEMOGLOBIN 13.8 g/dL (13.5-18.0); LYMPHOCYTES # (AUTO) 3.1 X10^3/uL (1.3-2.9); LYMPHOCYTES % (AUTO) 36.9 % (21.0-51.0); MEAN CORPUSCULAR HEMOGLOBIN 27.7 pg (27.0-34.0); MEAN CORPUSCULAR HGB CONC 32.1 g/dL (33.0-35.0); MEAN CORPUSCULAR VOLUME 86.2 fL (80.0-100.0); MEAN PLATELET VOLUME 9.9 fL (7.4-11.0); MONOCYTES # (AUTO) 0.6 x10^3/uL (0.3-0.8); MONOCYTES % (AUTO) 7.2 % (0.0-13.0); NEUTROPHILS # (AUTO) 4.5 x10^3/uL (2.2-4.8); NEUTROPHILS % (AUTO) 53.7 % (42.0-75.0); PLATELET COUNT 160 X10^3/uL (150.0-450.0); RED BLOOD COUNT 4.98 X10^6/uL (4.7-6.0); RED CELL DISTRIBUTION WIDTH 15.3 % (11.6-16.5); WHITE BLOOD COUNT 8.4 X10^3/uL (3.6-10.0)
[2021-06-28 07:06] LABS: ALANINE AMINOTRANSFERASE 13 Units/L (12-78); ALBUMIN 3.5 g/dL (3.4-5.0); ALKALINE PHOSPHATASE 45 Units/L (46-116); ASPARTATE AMINO TRANSFERASE 12 Units/L (15-37); BLOOD UREA NITROGEN 14 mg/dL (7-18); CALCIUM 9.1 mg/dL (8.5-10.1); CARBON DIOXIDE 26.6 mmol/L (21-32); CHLORIDE 112 mmol/L (98-107); CHOL/HDL RATIO 5.5 (0.0-5.0); CHOLESTEROL 194 mg/dL (0-200); CREATININE 0.92 mg/dL (0.70-1.30); HDL CHOLESTEROL 35 mg/dL (40-60); SODIUM 146 mmol/L (136-145); TOTAL PROTEIN 7.2 g/dL (6.4-8.2); TRIGLYCERIDES 155 mg/dL (0-150); eGFR NON BLACK RACES > 60 (>60)
[2021-06-28] MEDS: LOPRESSOR TAB 25 MG PO SCH (08:38)
[2021-06-28] MEDS: NEURONTIN CAP 300 MG PO SCH (08:38)
[2021-06-28] MEDS: ELIQUIS PO SCH (08:38)
[2021-06-28] MEDS: ZESTRIL TAB 10 MG PO SCH (08:39)
[2021-06-28] MEDS: PriLOSEC PO SCH (08:39)
[2021-06-28] MEDS ORDERED: PERCOCET TAB 5/325 MG PO SCH (09:00)
[2021-06-28] MEDS ORDERED: PLAVIX PO SCH (09:00)
[2021-06-28] MEDS ORDERED: LASIX IVP SCH (09:00)
[2021-06-28] MEDS ORDERED: ENZALUTAMIDE 40 MG PO SCH (09:00)
[2021-06-28] MEDS ORDERED: MICRO K EXTEN CAP 10 MEQ PO SCH (09:00)
[2021-06-28] MEDS ORDERED: NS 100 ML IV 100 ML ONE (10:01)
[2021-06-28 12:01] VITALS: BP 114/81
== END 2021-06-28 15:00 | disposition home or self-care (01) ==
LOC: MED/SURG 18:21 → ER 18:21 → MED/SURG 06-27 01:18
PROVIDERS: ADMIT Internal Medicine; ATTEND Internal Medicine
DX: Z20.822 Contact with and (suspected) exposure to COVID-19; R26.89 Other abnormalities of gait and mobility; Z86.73 Personal history of transient ischemic attack (TIA), and cerebral infarction without residual deficits; G45.8 Other transient cerebral ischemic attacks and related syndromes; I48.91 Unspecified atrial fibrillation; I10 Essential (primary) hypertension; R94.31 Abnormal electrocardiogram [ECG] [EKG]